=== PATIENT | female | born 2000 | race Caucasian/White ===

== ENCOUNTER 2021-04-02 22:09 | Outpatient (CLI) | payer OTHER | END 2021-04-02 23:34 | disposition home or self-care (01) | LOC: GENOP 22:09 | DX: O26.852 Spotting complicating pregnancy, second trimester (principal); O99.512 Diseases of the respiratory system complicating pregnancy, second trimester; J45.909 Unspecified asthma, uncomplicated; O99.282 Endocrine, nutritional and metabolic diseases complicating pregnancy, second trimester; E07.9 Disorder of thyroid, unspecified; Z79.899 Other long term (current) drug therapy; Z3A.26 26 weeks gestation of pregnancy | CPT/HCPCS: G0463 ==

== ENCOUNTER 2021-04-17 13:44 | Outpatient (CLI) | payer OTHER ==
[2021-04-17 14:36] LABS: HEMOGLOBIN 11.7 gm/dl (12.3-15.3); RED BLOOD COUNT 3.91 M/UL (4.00-5.10); WHITE BLOOD COUNT 9.2 K/UL (4.5-11.0)
[2021-04-17 15:03] LABS: BUN/CREATININE RATIO 15 (0-10)
== END 2021-04-17 17:00 | disposition home or self-care (01) ==
LOC: GENOP 13:44
PROVIDERS: Obstetrics & Gynecology
DX: O16.3 Unspecified maternal hypertension, third trimester (principal); O99.513 Diseases of the respiratory system complicating pregnancy, third trimester; O99.891 Other specified diseases and conditions complicating pregnancy; R10.9 Unspecified abdominal pain; R42 Dizziness and giddiness; J45.909 Unspecified asthma, uncomplicated; Z3A.28 28 weeks gestation of pregnancy; M54.5 Low back pain; O34.219 Maternal care for unspecified type scar from previous cesarean delivery; O99.343 Other mental disorders complicating pregnancy, third trimester; F32.9 Major depressive disorder, single episode, unspecified; O23.43 Unspecified infection of urinary tract in pregnancy, third trimester; O99.283 Endocrine, nutritional and metabolic diseases complicating pregnancy, third trimester; E07.9 Disorder of thyroid, unspecified
CPT/HCPCS: 36415; 80053; 81001; 85025; G0463

== ENCOUNTER → 2021-05-01 | Outpatient (CLI) | payer OTHER ==
[~2021-05-01] MED LIST: ACYCLOVIR400 MG PO; DOCUSATE SODIU100 MG PO; HYDROCODON-ACE1 EAC4 PO; IBUPROFEN600 MG PO; PREDNISONE 10 M10 MG PO; [UNRECOGNIZED DRUG - OTHER] OP
== END ==
LOC: GENOP 01:14
DX: O42.913 Preterm premature rupture of membranes, unspecified as to length of time between rupture and onset of labor, third trimester (principal); O99.891 Other specified diseases and conditions complicating pregnancy; O36.8130 Decreased fetal movements, third trimester, not applicable or unspecified; M54.5 Low back pain; R10.9 Unspecified abdominal pain; Z3A.30 30 weeks gestation of pregnancy; O99.283 Endocrine, nutritional and metabolic diseases complicating pregnancy, third trimester; E07.9 Disorder of thyroid, unspecified; O99.343 Other mental disorders complicating pregnancy, third trimester; F32.9 Major depressive disorder, single episode, unspecified; O23.43 Unspecified infection of urinary tract in pregnancy, third trimester
CPT/HCPCS: 81001; 83518; G0463

== ENCOUNTER 2021-06-12 19:52 | Outpatient (CLI) | payer OTHER | END 2021-06-12 23:04 | disposition home or self-care (01) | LOC: GENOP 19:52 | DX: O47.03 False labor before 37 completed weeks of gestation, third trimester (principal); O99.283 Endocrine, nutritional and metabolic diseases complicating pregnancy, third trimester; E07.9 Disorder of thyroid, unspecified; O99.343 Other mental disorders complicating pregnancy, third trimester; F32.9 Major depressive disorder, single episode, unspecified; Z3A.36 36 weeks gestation of pregnancy | CPT/HCPCS: 81001; 96360; 96372; J0702; J7120 ==

== ENCOUNTER → 2021-06-13 | Outpatient (CLI) | payer OTHER | LOC: EROP 21:53 | DX: O60.00 Preterm labor without delivery, unspecified trimester (principal) | CPT/HCPCS: 96372; J0702 ==

== ENCOUNTER 2021-06-21 05:17 | Inpatient (IN) | payer OTHER ==
[2021-06-21 07:28] LABS: HEMOGLOBIN 11.2 gm/dl (12.3-15.3); RED BLOOD COUNT 4.2 M/UL (4.00-5.10)
[2021-06-21] MEDS ORDERED: DOCUSATE SODIU100 MG PO (09:47)
[2021-06-21] MEDS ORDERED: HYDROCODON-ACE1 EAC4 PO (09:47)
[2021-06-21] MEDS ORDERED: IBUPROFEN600 MG PO (09:47)
[2021-06-22 06:41] LABS: HEMOGLOBIN 11.5 gm/dl (12.3-15.3)
== END 2021-06-22 18:43 | disposition home or self-care (01) | DRG 788 ==
LOC: GENOP 05:17 → OB 07:06
PROVIDERS: Obstetrics & Gynecology; ADMIT Obstetrics & Gynecology
PROC: 4A1HXCZ Monitoring of Products of Conception, Cardiac Rate, External Approach (ICD-10-PCS; 2021-06-21)
PROC: 10D00Z1 Extraction of Products of Conception, Low, Open Approach (ICD-10-PCS; principal; 2021-06-21 09:11)
DX: O34.211 Maternal care for low transverse scar from previous cesarean delivery (principal); Z3A.37 37 weeks gestation of pregnancy; Z37.0 Single live birth; Z20.822 Contact with and (suspected) exposure to COVID-19; Z81.8 Family history of other mental and behavioral disorders; Z82.49 Family history of ischemic heart disease and other diseases of the circulatory system; O99.284 Endocrine, nutritional and metabolic diseases complicating childbirth; E03.9 Hypothyroidism, unspecified; O42.92 Full-term premature rupture of membranes, unspecified as to length of time between rupture and onset of labor
CPT/HCPCS: 36415; 81001; 82800; 85014; 85018; 85025; C9113; J0690; J2274; J2405; J2590; J7120; U0002

== ENCOUNTER 2021-06-25 12:43 | Emergency (ER) | payer OTHER ==
[~2021-06-25 12:43] MED LIST changes: -ACYCLOVIR400 MG PO; -PREDNISONE 10 M10 MG PO; -[UNRECOGNIZED DRUG - OTHER] OP
[2021-06-25] MEDS ORDERED: PREDNISONE 10 M10 MG PO (14:26)
[2021-06-25] MEDS ORDERED: ACYCLOVIR400 MG PO (14:26)
[2021-06-25] MEDS ORDERED: [UNRECOGNIZED DRUG - OTHER] OP (14:29)
[2021-06-25 14:40] LABS: HEMOGLOBIN 11.1 gm/dl (12.3-15.3); RED BLOOD COUNT 4.03 M/UL (4.00-5.10); WHITE BLOOD COUNT 8.4 K/UL (4.5-11.0)
[2021-06-25 14:55] LABS: BUN/CREATININE RATIO 15 (0-10)
== END 2021-06-25 15:49 | disposition home or self-care (01) ==
LOC: ER1 12:43
PROVIDERS: Physician Assistant
DX: G51.0 Bell's palsy (principal)
CPT/HCPCS: 80048; 85025; 99284

== ENCOUNTER 2022-04-11 22:11 | Emergency (ER) | payer OTHER ==
[~2022-04-11 22:11] MED LIST changes: +ACYCLOVIR400 MG PO; +PREDNISONE 10 M10 MG PO; +[UNRECOGNIZED DRUG - OTHER] OP
== END 2022-04-12 00:39 | disposition left against medical advice (07) ==
LOC: ER1 22:11
DX: Z53.21 Procedure and treatment not carried out due to patient leaving prior to being seen by health care provider (principal)

== ENCOUNTER 2022-05-22 18:41 | Emergency (ER) | payer OTHER | END 2022-05-22 20:08 | disposition left against medical advice (07) | LOC: ER1 18:41 | DX: Z53.21 Procedure and treatment not carried out due to patient leaving prior to being seen by health care provider (principal) ==